=== PATIENT | female | born 1960 | race Caucasian/White ===

== ENCOUNTER 2025-01-23 11:48 | Day surgery (SDC) | payer BC, SELFPAY ==
[2025-01-23] VITALS (12 sets, daily range): BP systolic 105–130; BP diastolic 63–82; BMI 20.8
--- NOTE | 2025-01-23 05:20 | EDRN ---
Pt reports having abdominal pain beginning yesterday 01/22/25 at 1400. RLQ pain 01/11. Pt believes she had a low-grade fever last night but does not have one now.
--- NOTE | 2025-01-23 05:43 | ED.GENMED ---
History of Present Illness
<Dona Escalante PA-C - Last Filed: 01/23/25 09:54>
General
Chief Complaint: Abdominal Pain
Source: patient
Exam Limitations: none
Time Seen by Provider: 01/23/25 05:16
Nursing documentation reviewed up to this point in time: agreed with
History of Present Illness
History of Present Illness:
Note:
CHIEF COMPLAINT(S)
Pain in the right side of the abdomen
HISTORY OF PRESENT ILLNESS
The patient is a 64-year-old female presenting with constant right-sided abdominal pain that began yesterday. No clear in sighting event to the pain. The pain is constant and has been progressively worse since yesterday. The pain persists even
without movement and worsens upon motion. The patient denies experiencing fever, recent trauma, contact with sick individuals, or diarrhea. She recalls a previous episode of kidney stones during , which self-resolved, but does not equate
the current pain to past experiences. The patient denies any recent antibiotic use or new medications. She has not had any abdominal surgeries such as gallbladder or appendix removal. The patient is concerned since it�s unusual for her to experience
stomach pain. She has not taken anything for the pain and states that she does not like to take medications. She denies fevers, chills, urinary frequency, dysuria, urinary urgency. She takes no daily medications, no blood thinners.
PAST MEDICAL AND SURGICAL HISTORY
History of kidney stones during , resolved without surgical intervention.
PHYSICAL EXAM
General: Alert, no acute distress.
Skin: Warm, dry.
Head: Normocephalic, atraumatic.
Neck: Supple, trachea midline.
Eye Ears, nose, mouth and throat: Oral mucosa moist.
Cardiovascular: RRR, no murmurs. Normal peripheral perfusion, No edema.
Respiratory: Respirations are non-labored. No wheezes, rales, or rhonchi
Gastrointestinal: Abdomen nondistended. Tenderness to palpation at McBurney's point with guarding, +referred pain, +obturator sign
Neurological: Alert and oriented to person, place, time, and situation, No focal neurological deficit observed.
Psychiatric: Cooperative, appropriate mood & affect.
PROBLEM LIST
Acute:
- Right-sided abdominal pain
PLAN
- Perform a CT scan to evaluate for appendicitis and rule out differential diagnoses, including diverticulitis, ovarian cysts, or ovarian torsion.
- Obtain laboratory work for further assessment.
- Offer Toradol (Ketorolac) via IV for pain management, subject to patients preference, patient declines pain management at this time.
DIFFERENTIAL DIAGNOSIS
The Differential Diagnosis includes, in no particular order and is not limited to:
- Appendicitis
- Diverticulitis
- Ovarian cyst
- Ovarian torsion
- Kidney stones
- Gastroenteritis
- Colitis
- Mesenteric ischemia
- Pelvic inflammatory disease
- Biliary colic
Disposition:
SUMMARY OF ENCOUNTER
A 64-year-old female presented to the emergency department with concerns of right lower quadrant abdominal pain. A CT scan revealed acute appendicitis. Blood work was unremarkable, and urinalysis showed some bacteria but no signs of acute infection.
The case was signed out to the morning physician medical administrative assistant for further management.
DISPOSITION
Patient will be admitted for further management and surgical intervention.
ASSESSMENT
Acute appendicitis.
INDEPENDENT REVIEW OF LABS AND INTERPRETATION OF TESTS
My independent review of the urinalysis shows the presence of some bacteria but otherwise no signs of acute infection. My independent review of the CT scan confirms the presence of acute appendicitis.
PLAN
The patient will be admitted for surgical intervention for acute appendicitis.
MEDICAL DECISION MAKING
-Number and Complexity of Problems Addressed: Chronic conditions affecting care include the history of kidney stones during . Differential diagnosis considered acute appendicitis.
-Data:
Category 1
- My independent interpretation of CT scan confirms acute appendicitis.
DIAGNOSIS
Acute appendicitis (ICD-10: K35.80).
Review of Systems
<Dona Escalante PA-C - Last Filed: 01/23/25 09:54>
Review of Systems
All Other Systems: ROS reviewed and negative except as documented in HPI and ROS
Phy Exam
<Dona Escalante PA-C - Last Filed: 01/23/25 09:54>
Physical Exam
Physical Exam:
see hpi
Course
<Dona Escalante PA-C - Last Filed: 01/23/25 09:54>
Orders/Labs/Results
Orders:
Orders
01/23/25 05:42
CT Abd/pelvis W Iv Cont Urgent
Comment:
Reason For Exam: RLQ pain
01/23/25 06:06
Complete Blood Count/With Diff Urgent
Comprehensive Metabolic Panel Urgent
Lipase Urgent
Urinalysis Reflex To Culture Urgent
Date Specimen was Collected: 01/23/25
Time Specimen was Collected: 06:04
Urine Microscopic Reflex Cult Urgent
Urine Culture Urgent
SERA Source: U
Specimen Description:
Date Specimen was Collected: 01/23/25
Time Specimen was Collected: 06:04
01/23/25 07:44
Piperacillin/Tazo 4.5 Gram [Zosyn] 4.5 gram in 100 ml IV NOW
01/23/25 08:54
Bupivacaine 0.5%Pf/Epinephrin [Sensorcain-Mpf Epi 0.5%-0.0005] 30 ml .ROUTE .STK-MED ONE
01/23/25 09:01
Fentanyl Citrate/Pf [Sublimaze] 25 mcg IV PACU-[id number] PRN
HYDROmorphone [Dilaudid] 0.25 mg IV PACU-Q5MPRN PRN
HYDROmorphone [Dilaudid] 0.5 mg IV PACU-Q5MPRN PRN
Ondansetron Injectable [Zofran] 4 mg IV PACU-ONCEPRN PRN
Prochlorperazine [Compazine] 5 mg IV PACU-ONCEPRN PRN
Notify MD As Directed
Notify physician if: for SDS patients with known or suspected sleep obstructive sleep apnea, monitor in the
PACU.
Notify MD for any apneic/desaturation episodes
O2 Therapy [RESP] Urgent
Titrate/Wean O2 to maintain O2 sat greater than (%): 92
Special Instructions: -Provide supplemental oxygen to achieve O2 sat of 92% or greater.
-After 15 min, may wean O2 and discontinue if patient is able to maintain O2 sat of 92%
or greater during recovery period.
If patient is a discharge home, without oxygen therapy, notify anestheiologist if
unable to maintain O2 SAT of 92% or greater on room air for MD clearance.
01/23/25 09:07
Fentanyl Citrate/Pf [Sublimaze] 100 mcg .ROUTE .STK-MED ONE
Lidocaine 2% Mpf [Xylocaine Mpf 2%] 100 mg .ROUTE .STK-MED ONE
Midazolam HCl [Versed] 2 mg .ROUTE .STK-MED ONE
Propofol [Diprivan] 20 ml .ROUTE .STK-MED
Rocuronium Thorsby [Rocuronium] 50 mg .ROUTE .STK-MED ONE
01/23/25 09:08
Dexamethasone Sod Phosphate [Decadron] 20 mg .ROUTE .STK-MED ONE
Ondansetron Injectable [Zofran] 4 mg .ROUTE .STK-MED ONE
01/23/25 09:12
Sugammadex Sodium [Bridion] 200 mg .ROUTE .STK-MED ONE
01/23/25 09:15
Normosol (Mult Electrolytes) [Normosol-R/Plasmalyte-A] 1,000 ml IV PER PROTOCOL
Normosol (Mult Electrolytes) [Normosol-R/Plasmalyte-A] 1,000 ml IV PER PROTOCOL
01/23/25 10:03
OR Pathology Routine
Pre-Operative Diagnosis: acute appendicitis
Operative Procedure: lap appy
Surgeon: Dr. Diaz
Circulating Nurse: madison
Specimen Type: appendix
01/23/25 10:43
Fentanyl Citrate/Pf [Sublimaze] 25 mcg IV PACU-[id number] PRN
HYDROmorphone [Dilaudid] 0.25 mg IV PACU-Q5MPRN PRN
HYDROmorphone [Dilaudid] 0.5 mg IV PACU-Q5MPRN PRN
Ondansetron Injectable [Zofran] 4 mg IV PACU-ONCEPRN PRN
Prochlorperazine [Compazine] 5 mg IV PACU-ONCEPRN PRN
Notify MD As Directed
Notify physician if: for SDS patients with known or suspected sleep obstructive sleep apnea, monitor in the
PACU.
Notify MD for any apneic/desaturation episodes
O2 Therapy [RESP] Urgent
Titrate/Wean O2 to maintain O2 sat greater than (%): 92
Special Instructions: -Provide supplemental oxygen to achieve O2 sat of 92% or greater.
-After 15 min, may wean O2 and discontinue if patient is able to maintain O2 sat of 92%
or greater during recovery period.
If patient is a discharge home, without oxygen therapy, notify anestheiologist if
unable to maintain O2 SAT of 92% or greater on room air for MD clearance.
01/23/25 10:45
Normosol (Mult Electrolytes) [Normosol-R/Plasmalyte-A] 1,000 ml IV PER PROTOCOL
01/23/25 11:00
Acetaminophen [Tylenol] 650 mg PO SDS-Q4HPRN PRN
Flush (0.9% Sodium Chloride) [Flush (Nss)] See Dose Instructions IV PER PROTOCOL
Ibuprofen [Motrin] 600 mg PO SDS-Q6HPRN PRN
Ondansetron Injectable [Zofran] 4 mg IV SDS-ONCEPRN PRN
Oxycodone [Roxicodone] 10 mg PO SDS-Q4HPRN PRN
Oxycodone [Roxicodone] 5 mg PO SDS-Q4HPRN PRN
01/23/25 11:42
Phenylephrine HCl/0.9% NaCl [Dustin-Synephrine] 1,000 mcg .ROUTE .STK-MED ONE
ePHEDrine SULFATE [Emerphed] 50 mg .ROUTE .STK-MED ONE
01/23/25 11:49
Fentanyl Citrate/Pf [Sublimaze] 25 mcg IV PACU-[id number] PRN
HYDROmorphone [Dilaudid] 0.25 mg IV PACU-Q5MPRN PRN
HYDROmorphone [Dilaudid] 0.5 mg IV PACU-Q5MPRN PRN
Ondansetron Injectable [Zofran] 4 mg IV PACU-ONCEPRN PRN
Prochlorperazine [Compazine] 5 mg IV PACU-ONCEPRN PRN
Abnormal Lab Results
01/23/25
06:06
RBC 4.14 L 10^6/uL
(4.20-5.40)
MPV 10.5 H fL
(7.4-10.4)
Absolute Neuts (auto) 7.4 H 10^3/uL
(1.4-6.5)
Absolute Lymphs (auto) 1.1 L 10^3/uL
(1.2-3.4)
Absolute Monos (auto) 0.7 H 10^3/uL
(0.1-0.6)
Neutrophils % 79.6 H %
(42.2-75.2)
Lymphocytes % 11.7 L %
(20.5-51.1)
Glucose 132 H mg/dl
(70-99)
Urine Ketones 1+ A
(Negative)
Ur Occult Blood Reflex 2+ A
(Negative)
Urine Bacteria (Reflex) Moderate A
(Negative)
01/23/25 06:06
01/23/25 06:06
Vital Signs
Initial and Last Documented VS:
Initial Vital Signs
Temp Pulse Resp BP Pulse Ox
98.9 F 76 20 130/82 100
01/23/25 05:07 01/23/25 05:07 01/23/25 05:07 01/23/25 05:07 01/23/25 05:07
Last Documented Vital Signs
Temp Pulse Resp BP Pulse Ox
99 F 77 16 106/69 95
01/23/25 10:55 01/23/25 12:12 01/23/25 12:12 01/23/25 12:12 01/23/25 12:12
<Maureen Cuellar MD - Last Filed: 01/23/25 08:26>
Orders/Labs/Results
Orders:
Orders
01/23/25 05:42
CT Abd/pelvis W Iv Cont Urgent
Comment:
Reason For Exam: RLQ pain
01/23/25 06:06
Complete Blood Count/With Diff Urgent
Comprehensive Metabolic Panel Urgent
Lipase Urgent
Urinalysis Reflex To Culture Urgent
Date Specimen was Collected: 01/23/25
Time Specimen was Collected: 06:04
Urine Microscopic Reflex Cult Urgent
Urine Culture Urgent
SERA Source: U
Specimen Description:
Date Specimen was Collected: 01/23/25
Time Specimen was Collected: 06:04
01/23/25 07:44
Piperacillin/Tazo 4.5 Gram [Zosyn] 4.5 gram in 100 ml IV NOW
01/23/25 08:54
Bupivacaine 0.5%Pf/Epinephrin [Sensorcain-Mpf Epi 0.5%-0.0005] 30 ml .ROUTE .[facility]-MED ONE
01/23/25 09:01
Fentanyl Citrate/Pf [Sublimaze] 25 mcg IV PACU-[id number] PRN
HYDROmorphone [Dilaudid] 0.25 mg IV PACU-Q5MPRN PRN
HYDROmorphone [Dilaudid] 0.5 mg IV PACU-Q5MPRN PRN
Ondansetron Injectable [Zofran] 4 mg IV PACU-ONCEPRN PRN
Prochlorperazine [Compazine] 5 mg IV PACU-ONCEPRN PRN
Notify MD As Directed
Notify physician if: for SDS patients with known or suspected sleep obstructive sleep apnea, monitor in the
PACU.
Notify MD for any apneic/desaturation episodes
O2 Therapy [RESP] Urgent
Titrate/Wean O2 to maintain O2 sat greater than (%): 92
Special Instructions: -Provide supplemental oxygen to achieve O2 sat of 92% or greater.
-After 15 min, may wean O2 and discontinue if patient is able to maintain O2 sat of 92%
or greater during recovery period.
If patient is a discharge home, without oxygen therapy, notify anestheiologist if
unable to maintain O2 SAT of 92% or greater on room air for MD clearance.
01/23/25 09:07
Fentanyl Citrate/Pf [Sublimaze] 100 mcg .ROUTE .STK-MED ONE
Lidocaine 2% Mpf [Xylocaine Mpf 2%] 100 mg .ROUTE .STK-MED ONE
Midazolam HCl [Versed] 2 mg .ROUTE .STK-MED ONE
Propofol [Diprivan] 20 ml .ROUTE .STK-MED
Rocuronium Thorsby [Rocuronium] 50 mg .ROUTE .STK-MED ONE
01/23/25 09:08
Dexamethasone Sod Phosphate [Decadron] 20 mg .ROUTE .STK-MED ONE
Ondansetron Injectable [Zofran] 4 mg .ROUTE .STK-MED ONE
01/23/25 09:12
Sugammadex Sodium [Bridion] 200 mg .ROUTE .STK-MED ONE
01/23/25 09:15
Normosol (Mult Electrolytes) [Normosol-R/Plasmalyte-A] 1,000 ml IV PER PROTOCOL
Normosol (Mult Electrolytes) [Normosol-R/Plasmalyte-A] 1,000 ml IV PER PROTOCOL
01/23/25 10:03
OR Pathology Routine
Pre-Operative Diagnosis: acute appendicitis
Operative Procedure: lap appy
Surgeon: Dr. Diaz
Circulating Nurse: madison
Specimen Type: appendix
01/23/25 10:43
Fentanyl Citrate/Pf [Sublimaze] 25 mcg IV PACU-[id number] PRN
HYDROmorphone [Dilaudid] 0.25 mg IV PACU-Q5MPRN PRN
HYDROmorphone [Dilaudid] 0.5 mg IV PACU-Q5MPRN PRN
Ondansetron Injectable [Zofran] 4 mg IV PACU-ONCEPRN PRN
Prochlorperazine [Compazine] 5 mg IV PACU-ONCEPRN PRN
Notify MD As Directed
Notify physician if: for SDS patients with known or suspected sleep obstructive sleep apnea, monitor in the
PACU.
Notify MD for any apneic/desaturation episodes
O2 Therapy [RESP] Urgent
Titrate/Wean O2 to maintain O2 sat greater than (%): 92
Special Instructions: -Provide supplemental oxygen to achieve O2 sat of 92% or greater.
-After 15 min, may wean O2 and discontinue if patient is able to maintain O2 sat of 92%
or greater during recovery period.
If patient is a discharge home, without oxygen therapy, notify anestheiologist if
unable to maintain O2 SAT of 92% or greater on room air for MD clearance.
01/23/25 10:45
Normosol (Mult Electrolytes) [Normosol-R/Plasmalyte-A] 1,000 ml IV PER PROTOCOL
01/23/25 11:00
Acetaminophen [Tylenol] 650 mg PO SDS-Q4HPRN PRN
Flush (0.9% Sodium Chloride) [Flush (Nss)] See Dose Instructions IV PER PROTOCOL
Ibuprofen [Motrin] 600 mg PO SDS-Q6HPRN PRN
Ondansetron Injectable [Zofran] 4 mg IV SDS-ONCEPRN PRN
Oxycodone [Roxicodone] 10 mg PO SDS-Q4HPRN PRN
Oxycodone [Roxicodone] 5 mg PO SDS-Q4HPRN PRN
01/23/25 11:42
Phenylephrine HCl/0.9% NaCl [Dustin-Synephrine] 1,000 mcg .ROUTE .STK-MED ONE
ePHEDrine SULFATE [Emerphed] 50 mg .ROUTE .STK-MED ONE
01/23/25 11:49
Fentanyl Citrate/Pf [Sublimaze] 25 mcg IV PACU-[id number] PRN
HYDROmorphone [Dilaudid] 0.25 mg IV PACU-Q5MPRN PRN
HYDROmorphone [Dilaudid] 0.5 mg IV PACU-Q5MPRN PRN
Ondansetron Injectable [Zofran] 4 mg IV PACU-ONCEPRN PRN
Prochlorperazine [Compazine] 5 mg IV PACU-ONCEPRN PRN
Abnormal Lab Results
01/23/25
06:06
RBC 4.14 L 10^6/uL
(4.20-5.40)
MPV 10.5 H fL
(7.4-10.4)
Absolute Neuts (auto) 7.4 H 10^3/uL
(1.4-6.5)
Absolute Lymphs (auto) 1.1 L 10^3/uL
(1.2-3.4)
Absolute Monos (auto) 0.7 H 10^3/uL
(0.1-0.6)
Neutrophils % 79.6 H %
(42.2-75.2)
Lymphocytes % 11.7 L %
(20.5-51.1)
Glucose 132 H mg/dl
(70-99)
Urine Ketones 1+ A
(Negative)
Ur Occult Blood Reflex 2+ A
(Negative)
Urine Bacteria (Reflex) Moderate A
(Negative)
01/23/25 06:06
01/23/25 06:06
Vital Signs
Initial and Last Documented VS:
Initial Vital Signs
Temp Pulse Resp BP Pulse Ox
98.9 F 76 20 130/82 100
01/23/25 05:07 01/23/25 05:07 01/23/25 05:07 01/23/25 05:07 01/23/25 05:07
Last Documented Vital Signs
Temp Pulse Resp BP Pulse Ox
99 F 77 16 106/69 95
01/23/25 10:55 01/23/25 12:12 01/23/25 12:12 01/23/25 12:12 01/23/25 12:12
<Bronson Weinstein Jr., PA-C - Last Filed: 01/23/25 13:49>
Orders/Labs/Results
Orders:
Orders
01/23/25 05:42
CT Abd/pelvis W Iv Cont Urgent
Comment:
Reason For Exam: RLQ pain
01/23/25 06:06
Complete Blood Count/With Diff Urgent
Comprehensive Metabolic Panel Urgent
Lipase Urgent
Urinalysis Reflex To Culture Urgent
Date Specimen was Collected: 01/23/25
Time Specimen was Collected: 06:04
Urine Microscopic Reflex Cult Urgent
Urine Culture Urgent
SERA Source: U
Specimen Description:
Date Specimen was Collected: 01/23/25
Time Specimen was Collected: 06:04
01/23/25 07:44
Piperacillin/Tazo 4.5 Gram [Zosyn] 4.5 gram in 100 ml IV NOW
01/23/25 08:54
Bupivacaine 0.5%Pf/Epinephrin [Sensorcain-Mpf Epi 0.5%-0.0005] 30 ml .ROUTE .STK-MED ONE
01/23/25 09:01
Fentanyl Citrate/Pf [Sublimaze] 25 mcg IV PACU-[id number] PRN
HYDROmorphone [Dilaudid] 0.25 mg IV PACU-Q5MPRN PRN
HYDROmorphone [Dilaudid] 0.5 mg IV PACU-Q5MPRN PRN
Ondansetron Injectable [Zofran] 4 mg IV PACU-ONCEPRN PRN
Prochlorperazine [Compazine] 5 mg IV PACU-ONCEPRN PRN
Notify MD As Directed
Notify physician if: for SDS patients with known or suspected sleep obstructive sleep apnea, monitor in the
PACU.
Notify MD for any apneic/desaturation episodes
O2 Therapy [RESP] Urgent
Titrate/Wean O2 to maintain O2 sat greater than (%): 92
Special Instructions: -Provide supplemental oxygen to achieve O2 sat of 92% or greater.
-After 15 min, may wean O2 and discontinue if patient is able to maintain O2 sat of 92%
or greater during recovery period.
If patient is a discharge home, without oxygen therapy, notify anestheiologist if
unable to maintain O2 SAT of 92% or greater on room air for MD clearance.
01/23/25 09:07
Fentanyl Citrate/Pf [Sublimaze] 100 mcg .ROUTE .STK-MED ONE
Lidocaine 2% Mpf [Xylocaine Mpf 2%] 100 mg .ROUTE .STK-MED ONE
Midazolam HCl [Versed] 2 mg .ROUTE .STK-MED ONE
Propofol [Diprivan] 20 ml .ROUTE .STK-MED
Rocuronium Thorsby [Rocuronium] 50 mg .ROUTE .STK-MED ONE
01/23/25 09:08
Dexamethasone Sod Phosphate [Decadron] 20 mg .ROUTE .STK-MED ONE
Ondansetron Injectable [Zofran] 4 mg .ROUTE .STK-MED ONE
01/23/25 09:12
Sugammadex Sodium [Bridion] 200 mg .ROUTE .STK-MED ONE
01/23/25 09:15
Normosol (Mult Electrolytes) [Normosol-R/Plasmalyte-A] 1,000 ml IV PER PROTOCOL
Normosol (Mult Electrolytes) [Normosol-R/Plasmalyte-A] 1,000 ml IV PER PROTOCOL
01/23/25 10:03
OR Pathology Routine
Pre-Operative Diagnosis: acute appendicitis
Operative Procedure: lap appy
Surgeon: Dr. Diaz
Circulating Nurse: madison
Specimen Type: appendix
01/23/25 10:43
Fentanyl Citrate/Pf [Sublimaze] 25 mcg IV PACU-[id number] PRN
HYDROmorphone [Dilaudid] 0.25 mg IV PACU-Q5MPRN PRN
HYDROmorphone [Dilaudid] 0.5 mg IV PACU-Q5MPRN PRN
Ondansetron Injectable [Zofran] 4 mg IV PACU-ONCEPRN PRN
Prochlorperazine [Compazine] 5 mg IV PACU-ONCEPRN PRN
Notify MD As Directed
Notify physician if: for SDS patients with known or suspected sleep obstructive sleep apnea, monitor in the
PACU.
Notify MD for any apneic/desaturation episodes
O2 Therapy [RESP] Urgent
Titrate/Wean O2 to maintain O2 sat greater than (%): 92
Special Instructions: -Provide supplemental oxygen to achieve O2 sat of 92% or greater.
-After 15 min, may wean O2 and discontinue if patient is able to maintain O2 sat of 92%
or greater during recovery period.
If patient is a discharge home, without oxygen therapy, notify anestheiologist if
unable to maintain O2 SAT of 92% or greater on room air for MD clearance.
01/23/25 10:45
Normosol (Mult Electrolytes) [Normosol-R/Plasmalyte-A] 1,000 ml IV PER PROTOCOL
01/23/25 11:00
Acetaminophen [Tylenol] 650 mg PO SDS-Q4HPRN PRN
Flush (0.9% Sodium Chloride) [Flush (Nss)] See Dose Instructions IV PER PROTOCOL
Ibuprofen [Motrin] 600 mg PO SDS-Q6HPRN PRN
Ondansetron Injectable [Zofran] 4 mg IV SDS-ONCEPRN PRN
Oxycodone [Roxicodone] 10 mg PO SDS-Q4HPRN PRN
Oxycodone [Roxicodone] 5 mg PO SDS-Q4HPRN PRN
01/23/25 11:42
Phenylephrine HCl/0.9% NaCl [Dustin-Synephrine] 1,000 mcg .ROUTE .STK-MED ONE
ePHEDrine SULFATE [Emerphed] 50 mg .ROUTE .STK-MED ONE
01/23/25 11:49
Fentanyl Citrate/Pf [Sublimaze] 25 mcg IV PACU-[id number] PRN
HYDROmorphone [Dilaudid] 0.25 mg IV PACU-Q5MPRN PRN
HYDROmorphone [Dilaudid] 0.5 mg IV PACU-Q5MPRN PRN
Ondansetron Injectable [Zofran] 4 mg IV PACU-ONCEPRN PRN
Prochlorperazine [Compazine] 5 mg IV PACU-ONCEPRN PRN
Abnormal Lab Results
01/23/25
06:06
RBC 4.14 L 10^6/uL
(4.20-5.40)
MPV 10.5 H fL
(7.4-10.4)
Absolute Neuts (auto) 7.4 H 10^3/uL
(1.4-6.5)
Absolute Lymphs (auto) 1.1 L 10^3/uL
(1.2-3.4)
Absolute Monos (auto) 0.7 H 10^3/uL
(0.1-0.6)
Neutrophils % 79.6 H %
(42.2-75.2)
Lymphocytes % 11.7 L %
(20.5-51.1)
Glucose 132 H mg/dl
(70-99)
Urine Ketones 1+ A
(Negative)
Ur Occult Blood Reflex 2+ A
(Negative)
Urine Bacteria (Reflex) Moderate A
(Negative)
01/23/25 06:06
01/23/25 06:06
Vital Signs
Initial and Last Documented VS:
Initial Vital Signs
Temp Pulse Resp BP Pulse Ox
98.9 F 76 20 130/82 100
01/23/25 05:07 01/23/25 05:07 01/23/25 05:07 01/23/25 05:07 01/23/25 05:07
Last Documented Vital Signs
Temp Pulse Resp BP Pulse Ox
99 F 77 16 106/69 95
01/23/25 10:55 01/23/25 12:12 01/23/25 12:12 01/23/25 12:12 01/23/25 12:12
<Dona Escalante PA-C - Last Filed: 01/23/25 09:54>
MDM/Problems Addressed
Differential Diagnosis Includes:
ddx include appendicitis
MDM/Problems Addressed:
7:34 AM--Case signed out to MABERLY weinstein PA-C pending CT scan read read
<Dona Escalante PA-C - Last Filed: 01/23/25 09:54>
*Pulse Oximetry
SaO2: 99
Patient hypoxic: no
*Critical Care Note
Total Time (30-74mins, 75-104mins- exclusive of procedures): Not Applicable
<Bronson Weinstein Jr., PA-C - Last Filed: 01/23/25 13:49>
Update Note
Update Note:
Received signout from preceding PA. Patient was notified of diagnosis of acute appendicitis. Zosyn was then ordered and general surgery contacted. Patient was taken to the OR for surgery.
ED Attending Note
<Dona Escalante PA-C - Last Filed: 01/23/25 09:54>
-
Portions of this chart may have been created with voice recognition software.� Occasional wrong word or��sound alike� substitutions may have occurred due to the inherent limitations of voice recognition software.
<Maureen Cuellar MD - Last Filed: 01/23/25 08:26>
ED Attending Note
Patient seen and examined by attending physician: Yes
ED Attending Note:
64 yr old female with lower abd pain, worse with palpation. CT c/w acute appy with appendicolith. Surgery consulted and will plan to operate today. Pt and visitor updated. On exam, abd soft, ttp R>L lower abd, no r/g.
Discharge Plan
Departure
Patient Disposition: Home (Routine Discharge)
Date of Disposition: 01/23/25
Time of Disposition: 08:37
Admit to doctor: Joe
Patient with high blood pressure during this ER visit?: No
Condition: Good
Covid-19: Not Applicable
Discharge Problem:
Acute appendicitis
Interventions
Interventions:
*Risk Screen - Suicide Last Done: 01/23/25 05:07
*General Assessment Last Done: 01/23/25 05:23
*Neglect/Abuse Screening Last Done: 01/23/25 05:07
*ED- Fall Risk Assessment Last Done: 01/23/25 05:23
*ED COVID-19 Vaccine History Last Done: 01/23/25 05:23
*Nursing Disposition Last Done: 01/23/25 09:09
JX-Ghvuvm-Yifhwhdxtv Assessment Last Done: 01/23/25 05:26
Discharge Date and Time
Discharge Date/Time: 01/23/25 09:10
[2025-01-23 06:18] LABS: Hematocrit 38.0 % (37.0-47.0); Hemoglobin 12.7 g/dL (12.0-16.0); Mean Corp Hgb Conc. 33.4 g/dL (33.0-37.0); Mean Corpuscular Volume 91.8 fL (81.0-99.0); Nucleated Red Blood Cells % 0 %; Platelet Count 148 10^3/uL (130-400); Red Cell Dist. Width 12.6 % (11.5-14.5)
[2025-01-23 06:41] LABS: Urine Character Clear (Clear)
[2025-01-23 06:47] LABS: ALT (SGPT) 16 U/L (0-35); AST (SGOT) 20 U/L (14-36); Albumin 4.2 g/dl (3.5-5.0); Alkaline Phosphatase 41 U/L (38-126); Blood Urea Nitrogen 16 mg/dl (7-17); Calcium 9.5 mg/dl (8.4-10.2); Carbon Dioxide 29 mmol/L (22-30); Chloride 105 mmol/L (98-107); Estimated Creatinine Clearance 83 ml/min; Glucose 132 mg/dl (70-99); Lipase 55 U/L (23-300); Potassium 3.9 mmol/L (3.5-5.1); Sodium 139 mmol/L (135-145); Total Protein 6.8 g/dl (6.3-8.2); eGFR > 60.00
[2025-01-23 07:35] LABS: Urine Red Blood Cell 0-2 /HPF (0-2); Urine White Cell 0-2 /HPF (0-5)
[2025-01-23] MEDS: ZOSYN 100 IV (08:35)
--- NOTE | 2025-01-23 09:19 | HPS.HSE ---
Family Physician
-
Family Physician: Cody Muñoz MD
Chief Complaint
-
Abdominal pain
History of Present Illness
This is a 64-year-old female who presents with a 1 day history of right lower quadrant abdominal pain. Subjective fever and diarrhea at home. No nausea or vomiting. Never had pain like this in the past. No prior surgeries and otherwise fairly
healthy.
Medical History
Past Medical History
Past Medical History: Reports None
Past Surgical History: Reports None
Social History
Tobacco: Non-smoker
Alcohol: None
Drug: None
Personal:
Living: With Family
Family History
Family History: Not pertinent
Allergies / Home Medications
Allergies reflects when Allergies were last updated in [facility].
Home Medications with original date entered in [facility]
Allergy/Medication List:
No allergies.
She takes no daily prescription medications.
Review of Systems
-
A 12 point ROS was completed and negative except as noted: Yes
Physical Exam
Vital Signs
Vital Signs
Temp Pulse Resp BP Pulse Ox
98.9 F 73 14 117/76 96
01/23/25 05:07 01/23/25 08:45 01/23/25 08:45 01/23/25 08:00 01/23/25 08:45
Physical Exam
General: Well Developed
HEENT: NormoCephalic
Respiratory: Non Labored Respirations
GI: Soft, Non Distended and Tender
Laboratory Results
-
01/23/25 06:06
01/23/25 06:06
Laboratory Results
Total Bilirubin 1.1 mg/dl (0.2-1.3) 01/23/25 06:06
AST 20 U/L (14-36) 09/22/25 06:06
ALT 16 U/L (0-35) 01/23/25 06:06
Alkaline Phosphatase 41 U/L (38-126) 01/23/25 06:06
Lipase 55 U/L (23-300) 01/23/25 06:06
Data Reviewed
-
CT Scan: Image Personally Visualized and interpreted, Report Reviewed by me and Discussed with Patient
Lab Data: Labs Reviewed by me
Impression/Plan
-
IMPRESSION: This is a 64-year-old female who presents with a 1 day history of right lower quadrant abdominal pain. CT imaging, blood work and exam all consistent with acute appendicitis
PLAN: Will plan for laparoscopic appendectomy in the OR today.
N.p.o., IV fluids, IV antibiotics.
Risks/Benefits/Alternatives, expected postoperative course and possible complications (bleeding, infection, injury to surrounding structures, acute/chronic pain) discussed at length. Patient wishes to proceed with surgery. All questions answered.
Consent obtained.
I spent 75 minutes in total for the care of this patient today including direct patient care and counseling, reviewing labs, imaging, coordination of care, as well as documentation.
--- NOTE | 2025-01-23 09:23 | W.SUR.PREOP ---
Pre-Operative Surgical Note
-
I have examined this patient prior to the performance of the scheduled procedure.
The patient's condition is unchanged from the time of the current History and
Physical and the patient is able to undergo the scheduled procedure.
--- NOTE | 2025-01-23 10:11 | W.IMMPOSTOP ---
Surgical Immed Post Op Note
-
Primary Surgeon: Gabino Diaz MD
Assisting Surgeon: None
Pre-op Diagnosis: Acute appendicitis
Post-op Diagnosis: Same
Procedure Performed: Laparoscopic appendectomy
Anesthesia Type: General
Specimen / Cultures: Appendix
Estimated Blood Loss: 3 cc
Complications: None
Operative Findings: Three 5 mm ports. Nonperforated, inflamed and suppurative appendicitis. Base clean, ligated with a 0 PDS Endoloop x 2.
POST OP PLAN:
Imaging: None
Labs: Routine AM
Diet: Advance to Regular as tolerated
Analgesia: Tylenol 650mg q6 Lety, Dilaudid 0.5mg q2h PRN
Neuro/vascular checks: Per unit protocol
AC/AP: Hold Therapeutic AC, Ok for DVT PPx
Activity: Ad Zenaida
Wound/Incisions/Drains: Routine
Abx: None
Dispo: Will DC home pending postoperative clinical course.
--- NOTE | 2025-01-23 10:13 | OR.RPT ---
Operative Report
Operative Report
Patient Name: Gretel Dc
: 1960
Date of Operation: 01/23/2025
Preoperative Diagnosis: Acute Appendicitis
Postoperative Diagnosis: Same
Procedure(s):
Laparoscopic Appendectomy
Surgeon(s):
Dr. Diaz
Spot Welder Body Assembly(s):
None
Anesthesia: General
Estimated Blood Loss: 3 cc
Urine Output: None
Drains/Lines/Implants: None
Specimens:
1. Appendix
HPI/Surgical Indications:
This is a 64-year-old female who presents with a 1 day history of abdominal pain. Exam, labs and imaging are consistent with acute appendicitis. Risks/Benefits/Alternatives were discussed at length, and the patient agreed to proceed with surgery.
Operative Findings: Three 5 mm ports. Nonperforated, inflamed and suppurative appendicitis. Base clean, ligated with a 0 PDS Endoloop x 2.
Procedure Description:
The patient was placed in the supine position, with the left arm tucked, and general anesthesia was induced. The abdomen was prepared and draped in a sterile fashion so as to expose the entire abdomen. A surgical time out was taken. Abdominal access
was obtained with a 5 mm infra-umbilical Kenneth Entry. After confirming no injury on entrance, two additional 5mm ports were placed in the suprapubic area just off midline and in the left lower quadrant. The patient was placed in Trendelenberg with
the right slightly up . The appendix was identified and a window was created in the mesoappendix. The appendix was suppurative and inflamed but not perforated. Using a laparoscopic bipolar energy device, the meso appendix was divided. The base of
the appendix appeared uninvolved and was ligated/divided using two 0-PDS Endoloops and the energy device. The appendix was placed in a specimen retrieval bag. Hemostasis was confirmed and the ports were removed under visualization. The specimen was
passed off the field. The umbilical port was closed with a [id number] 0-PDS and the skin for all three ports was closed with interrupted monocryls and covered with dermabond. The patient was awoken from anesthesia in good condition and
transported to the recovery area.
I was the attending physician and performed the procedure with no assistance. I was present for all portions of the case.
Gabino Diaz MD
== END 2025-01-23 12:38 | disposition home or self-care (01) ==
LOC: SDS 11:48
PROVIDERS: Physician Assistant; ATTENDING PHYSICIAN Surgery; EMERGENCY PHYSICIAN Emergency Medicine; FAMILY PHYSICIAN Family Medicine
DX: K35.80 Unspecified acute appendicitis (principal)
CPT/HCPCS: 44970; 74177; 80053; 81003; 81015; 83690; 85025; 87086; 88304; 96374; 99285; Q9967